=== PATIENT | male | born 1975 | race Caucasian/White ===

== ENCOUNTER 2020-09-23 18:21 | Emergency (ER) | payer OTHER ==
[~2020-09-23] VITALS: Ht 193 cm; Wt 111.1 kg
[2020-09-23 19:12] VITALS: BP 166/111
[2020-09-23] MEDS ORDERED: HYDROCODON-ACE1 EAC7 PO (19:19)
[2020-09-23] MEDS ORDERED: DOXYCYCLINE 10100 MG PO (19:19)
== END 2020-09-23 19:44 | disposition home or self-care (01) ==
LOC: ER 18:21
DX: L02.31 Cutaneous abscess of buttock (principal)